=== PATIENT | female | born 2000 | race Caucasian/White ===

== ENCOUNTER 2023-07-26 22:06 | Observation (INO) | payer MEDICAID, OTHER ==
[2023-07-26 22:39] VITALS: RESP 18
[2023-07-26 23:16] LABS: Amphetamine,Urine NEGATIVE (NEGATIVE); Barbiturate,Urine NEGATIVE (NEGATIVE); Benzodiazepine,Urine NEGATIVE (NEGATIVE); Cocaine,Urine NEGATIVE (NEGATIVE); Methadone,Urine NEGATIVE (NEGATIVE); Opiate,Urine NEGATIVE (NEGATIVE); PCP,Urine NEGATIVE (NEGATIVE); THC,Urine NEGATIVE (NEGATIVE)
[2023-07-26 23:17] VITALS: BP 117/71; PULSE 97; TEMP 99.8; O2SAT 97
[2023-07-26 23:27] LABS: Appearance Cloudy (Clear); Bacteria Rare /HPF (None Seen); Bilirubin Negative (Negative); Blood Negative (Negative); Epithelial Cells None Seen /HPF (None Seen); Glucose, Urine Negative (Negative); Hyaline Casts NONE SEEN /LPF (0-2); Ketones Negative (Negative); Leukocyte Esterase Small (Negative); Nitrite Negative (Negative); Ph 6.5 (4.6-8.0); Protein,Urine Dip Negative (Negative); RBC 0-2 /HPF (0-5); Specific Gravity 1.015 (1.005-1.030); Urobilinogen 0.2 mg/dL (0.2)
[2023-07-26 23:30] LABS: ADD URINE CULTURE? NO (NO)
== END 2023-07-27 | disposition home or self-care (01) ==
LOC: OB 22:06
PROVIDERS: ADMIT Family Medicine; ATTEND Family Medicine
DX: Z34.02 Encounter for supervision of normal first pregnancy, second trimester (principal); Z3A.21 21 weeks gestation of pregnancy; Z91.410 Personal history of adult physical and sexual abuse
CPT/HCPCS: 80307; 81001; G0378; G0379

== ENCOUNTER 2024-07-01 18:38 | Emergency (ER) | payer OTHER ==
--- NOTE | 2024-07-01 18:54 | ERPHSYRPT ---
- History of Present Illness Time Seen by Provider: 07/01/24 18:53 Historian: patient, family Exam Limitations: no limitations Physician History: This is a 24-year-old white female patient who presents with intermittent chest pain for the last couple of weeks. She has had that type of pain chronically. However, in the last couple of days she has had some intermittent sharp pains with a "generalized fullness". She also has associated mild shortness of breath. Patient delivered a child several months ago. In April 2024 she was but then had a miscarriage. She states she is definitely not . She has no primary care provider and has no known drug allergies and she takes no medications chronically. Patient has no chest pain now and has no shortness of breath at this time. Patient heart score is significantly less than 4. She has no known coronary artery disease but there is a family history of heart disease. Timing/Duration: day(s) (1 to 2) Activities at Onset: none Quality: fullness, sharpness Severity of Pain-Max: mild Severity of Pain-Current: mild Modifying Factors: Improves With: nothing Associated Symptoms: shortness of breath (Mild intermittent) Prior Chest Pain/Cardiac Workup: no prior cardiac workup Nitro Today/Relief: no nitro taken today Aspirin Treatment Today: no aspirin today Allergies/Adverse Reactions: No Known Drug Allergies Allergy (Verified 07/01/24 18:57) Home Medications: No Reportable Medications [No Reported Medications] 07/01/24 [History] Travel Risk - International Travel Have you traveled outside of the country in past 3 weeks: No - Emerging Infectious Disease Are you exhibiting symptoms associated with any current EIDs: No - Review of Systems Constitutional: No Symptoms Eyes: No Symptoms Ears, Nose, & Throat: No Symptoms Respiratory: No Symptoms Cardiac: Chest Pain (Now) Abdominal/Gastrointestinal: No Symptoms Genitourinary Symptoms: No Symptoms Musculoskeletal: No Symptoms Skin: No Symptoms Neurological: No Symptoms Psychological: No Symptoms Endocrine: No Symptoms Hematologic/Lymphatic: No Symptoms Immunological/Allergic: No Symptoms All Other Systems: Reviewed and Negative - Past Medical History Pertinent Past Medical History: Yes - Social History Smoking Status: Former smoker How long have you smoked: occasional Exposure to second hand smoke: No - Social Determinants of Health Will the patient participate in the screening: Yes Do you worry about a steady place to live?: No In the past 12 months,have you had to go without utilities?: No Transportation Issues: No Has anyone in your support network made you feel unsafe?: No Have you or anyone in your house had to go without enough: No - Nursing Vital Signs Nursing Vital Signs: Initial Vital Signs Temperature 71.9 F 07/01/24 18:38 Pulse Rate 88 07/01/24 18:38 Respiratory Rate 20 07/01/24 18:38 Blood Pressure 129/80 07/01/24 18:38 O2 Sat by Pulse Oximetry 97 07/01/24 18:38 Pain Scale Pain Intensity 6 - Physical Exam General Appearance: no apparent distress, alert, anxiety Eye Exam: PERRL/EOMI, eyes nml inspection Ears, Nose, Throat Exam: normal ENT inspection, moist mucous membranes Neck Exam: normal inspection, non-tender, supple, full range of motion Respiratory Exam: normal breath sounds, lungs clear, airway intact, No chest tenderness, No respiratory distress Cardiovascular Exam: regular rate/rhythm, normal heart sounds, normal peripheral pulses Gastrointestinal/Abdomen Exam: soft, normal bowel sounds, No tenderness Pelvic Exam: not done Rectal Exam: not done Back Exam: normal inspection, normal range of motion, No CVA tenderness, No vertebral tenderness Extremity Exam: normal inspection, normal range of motion, pelvis stable Neurologic Exam: alert, oriented x 3, cooperative, tunnel worker II-XII nml as tested, nml cerebellar function, nml station & gait, sensation nml Skin Exam: normal color, warm, dry SpO2 Interpretation: normal O2 Delivery: Room Air - Course Nursing assessment & vital signs reviewed: Yes EKG Interpreted by Me: RATE (69), Sinus Rhythm, NORMAL AXIS, NORMAL INTERVALS, NORMAL QRS, Other (No acute ischemic changes. QTc 393) Ordered Tests: Active Orders 24 hr Category Date Time Status EKG-ER Only STAT Care 07/01/24 18:58 Active IV Insertion STAT Care 07/01/24 19:12 Active Pulse Oximetry (ED) STAT Care 07/01/24 18:58 Active CHEST 1 VIEW (PORTABLE) Stat Exams 07/01/24 18:59 Taken CBC W DIFF Stat Lab 07/01/24 19:14 Completed CMP Stat Lab 07/01/24 19:14 Completed D-DIMER QUANTITATIVE Stat Lab 07/01/24 19:14 Completed MAGNESIUM Stat Lab 07/01/24 19:14 Completed TROPONIN Q4H Lab 07/01/24 19:14 Completed TROPONIN Q4H Lab 07/01/24 23:00 Ordered TROPONIN Q4H Lab 07/02/24 03:00 Ordered Lab/Rad Data: Laboratory Result Diagrams 07/01/24 19:14 07/01/24 19:14 Laboratory Results 07/01/24 07/01/24 07/01/24 Range/Units 19:14 19:14 19:14 WBC (3.98-10.04) x10^3/uL RBC (3.93-5.22) x10^6/uL Hgb (11.2-15.7) g/dL Hct (34.1-44.9) % MCV (79.4-94.8) fL MCH (25.6-32.2) pg MCHC (32.2-35.5) g/dL RDW (11.7-14.4) % Plt Count (182-369) x10^3/uL MPV (9.4-12.3) fL Gran % (34.0-71.1) % Immature Gran % (Auto) (0.001-0.429) % Nucleat RBC Rel Count (0.00-0.2) % Eos # (Auto) (0.04-0.36) x10^3/uL Immature Gran # (Auto) (0.001-0.031) x10^3u/L Absolute Lymphs (auto) (1.18-3.74) x10^3/uL Absolute Monos (auto) (0.24-0.86) x10^3/uL Absolute Nucleated RBC (0.00-0.012) x10^3u/L Lymphocytes % (19.3-51.7) % Monocytes % (4.7-12.5) % Eosinophils % (0.7-5.8) % Basophils % (0.1-1.2) % Absolute Granulocytes (1.56-6.13) x10^3/uL Basophils # (0.01-0.08) x10^3/uL D-Dimer < 0.19 (0.0-0.50) mg/L Sodium 141 (135-145) mmol/L Potassium 4.0 (3.5-5.1) mmol/L Chloride 106 (98-107) mmol/L Carbon Dioxide 22 (22-30) mmol/L Anion Gap 16.4 H (5-15) MEQ/L BUN 12 (7-17) mg/dL Creatinine 0.61 (0.52-1.04) mg/dL Estimated GFR 128.8 ML/MIN Glucose 122 H (74-106) mg/dL Calcium 10.1 (8.4-10.2) mg/dL Magnesium 1.9 (1.6-2.3) mg/dL Total Bilirubin 0.30 (0.2-1.3) mg/dL AST 20 (14-36) U/L ALT 19 (0-35) U/L Alkaline Phosphatase 61 (38-126) U/L Troponin I < 0.012 (0.000-0.033) ng/mL Serum Total Protein 7.0 (6.3-8.2) g/dL Albumin 4.4 (3.5-5.0) g/dL 07/01/24 Range/Units 19:14 WBC 9.1 (3.98-10.04) x10^3/uL RBC 4.25 (3.93-5.22) x10^6/uL Hgb 13.6 (11.2-15.7) g/dL Hct 39.8 (34.1-44.9) % MCV 93.6 (79.4-94.8) fL MCH 32.0 (25.6-32.2) pg MCHC 34.2 (32.2-35.5) g/dL RDW 12.6 (11.7-14.4) % Plt Count 272 (182-369) x10^3/uL MPV 9.1 L (9.4-12.3) fL Gran % 64.0 (34.0-71.1) % Immature Gran % (Auto) 0.2 (0.001-0.429) % Nucleat RBC Rel Count 0.0 (0.00-0.2) % Eos # (Auto) 0.07 (0.04-0.36) x10^3/uL Immature Gran # (Auto) 0.02 (0.001-0.031) x10^3u/L Absolute Lymphs (auto) 2.64 (1.18-3.74) x10^3/uL Absolute Monos (auto) 0.51 (0.24-0.86) x10^3/uL Absolute Nucleated RBC 0.00 (0.00-0.012) x10^3u/L Lymphocytes % 29.1 (19.3-51.7) % Monocytes % 5.6 (4.7-12.5) % Eosinophils % 0.8 (0.7-5.8) % Basophils % 0.3 (0.1-1.2) % Absolute Granulocytes 5.81 (1.56-6.13) x10^3/uL Basophils # 0.03 (0.01-0.08) x10^3/uL D-Dimer (0.0-0.50) mg/L Sodium (135-145) mmol/L Potassium (3.5-5.1) mmol/L Chloride (98-107) mmol/L Carbon Dioxide (22-30) mmol/L Anion Gap (5-15) MEQ/L BUN (7-17) mg/dL Creatinine (0.52-1.04) mg/dL Estimated GFR ML/MIN Glucose (74-106) mg/dL Calcium (8.4-10.2) mg/dL Magnesium (1.6-2.3) mg/dL Total Bilirubin (0.2-1.3) mg/dL AST (14-36) U/L ALT (0-35) U/L Alkaline Phosphatase (38-126) U/L Troponin I (0.000-0.033) ng/mL Serum Total Protein (6.3-8.2) g/dL Albumin (3.5-5.0) g/dL - Progress Progress: improved, re-examined Air Movement: good Progress Note: 07/01/24 19:43 My medical decision making and the assignment of moderate complexity to this patient's medical issue today is based on review of the patient's past medical history, review of the patient's medication list, history present illness and physical findings on examination. The workup today includes placement of intravenous line, twelve-lead EKG, CBC, CMP, D-dimer, troponin level, chest x- ray and magnesium level. Differential diagnosis includes but is not limited to anxiety about health, muscle skeletal pain, arrhythmia, electrolyte abnormalities, pulmonary embolus, pneumonia, myocardial infarction 07/01/24 19:44 The preliminary chest x-ray report was interpreted by me. There is no obvious acute cardiopulmonary process. 07/01/24 19:49 I interpreted the patient's laboratory data results. Based on the laboratory data results, the patient does not have an acute, emergent medical issue. Blood Culture(s) Obtained: No Antibiotics given: No Medical Desision Making - Independent Historian Additional History obtained from: Mother - Diagnostic Testing Diagnostic test were ordered, analyzed, and reviewed by me: Yes Radiological Interpretation: Interpreted by me - Risk of complications Minimal Risk: Minimal risk of morbidity - Departure Departure Disposition: Home Clinical Impression: Nonspecific chest pain Condition: Stable Critical Care Time: No Referrals: DOCTOR,NO FAMILY [Primary Care Provider] - Follow up/PCP as directed Additional Instructions: Drink plenty fluids. Take your medications as prescribed. May use Tylenol and ibuprofen for pain control if there are no contraindications to do so. Call your primary care provider on Thursday, 07 04 2024, to make arrangements for follow-up appointment for further evaluation and management.
[2024-07-01 18:57] VITALS: TEMP 71.9
[2024-07-01 19:12] VITALS: O2SAT 98
[2024-07-01 19:18] LABS: Absolute Neutrophil Ct (ANC) 5.81 x10^3/uL (1.56-6.13); BASOPHIL % 0.3 % (0.1-1.2); Basophil (Absolute #) 0.03 x10^3/uL (0.01-0.08); Eosinophil % 0.8 % (0.7-5.8); Eosinophil (Absolute #) 0.07 x10^3/uL (0.04-0.36); Hematocrit 39.8 % (34.1-44.9); Hemoglobin 13.6 g/dL (11.2-15.7); IMMATURE GRAN # 0.02 x10^3u/L (0.001-0.031); IMMATURE GRAN % 0.2 % (0.001-0.429); Lymphocyte (Absolute #) 2.64 x10^3/uL (1.18-3.74); Lymphocytes % 29.1 % (19.3-51.7); Mean Cell Volume 93.6 fL (79.4-94.8); Mean Corpuscular Hgb Concent. 34.2 g/dL (32.2-35.5); Mean Platelet Volume 9.1 fL (9.4-12.3); Monocyte (Absolute #) 0.51 x10^3/uL (0.24-0.86); Monocytes % 5.6 % (4.7-12.5); Platelet Count 272 x10^3/uL (182-369); Red Blood Count 4.25 x10^6/uL (3.93-5.22); Red Cell Distribution Width 12.6 % (11.7-14.4); White Blood Count 9.1 x10^3/uL (3.98-10.04)
[2024-07-01 19:32] LABS: ALBUMIN 4.4 g/dL (3.5-5.0); ANION GAP 16.4 MEQ/L (5-15); BILIRUBIN,TOTAL 0.3 mg/dL (0.2-1.3); Calcium 10.1 mg/dL (8.4-10.2); Creatinine 1 0.61 mg/dL (0.52-1.04); EST GLOMERULAR FILTRATION RATE 128.8 ML/MIN; MAGNESIUM 1.9 mg/dL (1.6-2.3)
[2024-07-01 19:50] VITALS: PULSE 92; RESP 25
[2024-07-01 20:07] VITALS: BP 114/67
--- NOTE | 2024-07-01 22:36 | XRAY ---
Indication: Chest pain. Short of breath. Comparison: None Portable chest demonstrates normal heart and lungs. Bony thorax intact with mild dextroscoliosis.
== END 2024-07-01 20:08 | disposition home or self-care (01) ==
LOC: ED 18:38
DX: R07.9 Chest pain, unspecified (principal); R06.02 Shortness of breath
CPT/HCPCS: 36000; 36415; 71045; 80053; 83735; 84484; 85025; 85379; 93005; 94760; 99284